=== PATIENT | male | born 1940 | race Caucasian/White ===

== ENCOUNTER 2017-10-25 20:45 | Emergency (ER) | payer MEDICARE, MEDICAID ==
--- NOTE | 2017-10-25 21:27 | ED Physician Chart ---
ED Chief Complaint/HPI - Patient Information Date Seen:: 10/25/17 Time Seen:: 21:15 Chief Complaint:: weakness History of Present Illness:: 4 days and 2 days ago patient had a seizure. Historian is the son but he did not witness either seizure. He has however witnessed the patient seizures in the past. During previous seizures patient's had generalized shaking with eyes rolling back. Since his last seizure 2 days ago he initially had right leg dragging when he walked and now is not walking at all. He has been talking normally since the last 2 seizures. Allergies:: Allergies Allergy/AdvReac Type Severity Reaction Status Date / Time No Known Allergies Allergy Verified 10/25/17 21:10 Vitals:: Vital Signs - 8 hr 10/25/17 20:49 Temp 98.1 F HR 68 RR 18 BP 130/60 O2 Sat % 97 Historian:: Family Member Review:: Nurse's Note Reviewed ED Review of Systems - Review of Systems General/Constitutional: No fever, No chills Skin: No skin lesions Head: No headache Eyes: No loss of vision ENT: No earache Neck: No neck pain, No swelling Cardio Vascular: No chest pain, No palpitations Pulmonary: No SOB GI: No nausea, No vomiting, No diarrhea G/U: No dysuria Musculoskeletal: No bone or joint pain Endocrine: No polyuria Psychiatric: No prior psych history, No anxiety Hematopoietic: No bruising Allergic/Immuno: No urticaria Neurological: Focal symptoms ED Past Medical History - Past Medical History Past Medical History: DM, Seizures, Other (seizures since age 43) Family History: Other Social History: Other (formerly smoked heavily and drank alcohol heavily but not currently) Surgical History: None Psychiatricy History: None Medication: Reviewed Family Medical History - Family Member Mother History Unknown: Yes ED Physical Exam - Physical Examination General/Constitutional: Awake, Well-developed, well-nourished, Alert Head: Atraumatic Eyes: Lids, conjuctiva normal, PERRL Skin: Nl inspection, No rash, No skin lesions, No ecchymosis ENMT: External ears, nose nl, TM canals nl, Nasal exam nl Other ENMT comments:: Edentulous with dentures Neck: No bruit Cardio Vascular: RRR GI: No tenderness/rebounding/guarding : No CVA tenderness Extremities: Normal digits & nails Other Neuro/Psych comments:: 1 out of 4 drooping right coronary mouth; slight decreased right hand grasp and right leg strength Misc: No paraspinal tenderness ED Labs/Radiology/EKG Results - Lab Results Results: Laboratory Results - last 24 hr 10/25/17 10/25/17 21:30 21:30 WBC 6.8 RBC 4.61 Hgb 14.9 Hct 44.0 MCV 95.3 MCH 32.3 H MCHC Differential 33.9 RDW 11.8 Plt Count 151 MPV 6.8 Neutrophils % 63.0 Lymphocytes % 25.7 Monocytes % 6.9 Eosinophils % 3.9 Basophils % 0.5 Sodium 133 L Potassium 3.9 Chloride 100 Carbon Dioxide 28.1 Anion Gap 8.8 BUN 17 Creatinine 0.9 Est GFR ( Amer) TNP Est GFR (Non-Af Amer) TNP BUN/Creatinine Ratio 18.9 Glucose 168 H Calcium 8.8 Magnesium 1.9 - Radiology Results Results: Chest x-ray negative. CT head showed large left subdural hematoma with 9 mm of midline shift - EKG Interpretations Rate & Rhythm: normal sinus rhythm the rate is 68 [place]: normal axis ED Assessment - Assessment General Assessment: Dr. Rivera calmly with the results of the CAT scan. I then called [facility]. They said they were closed to neurosurgery. [facility] was then contacted and I talked to Dr. Herman who accepted the patient. No tenderness, swelling or deformity of the patient's scalp was noted. Patient to be transferred by [facility] ambulance. ED Septic Shock - . Is Septic Shock (SBP<90, OR Lactate>4 mmol\L) present?: No - <6hrs of presentation: Vital Signs: Vital Signs - 8 hr 10/25/17 20:49 Temp 98.1 F HR 68 RR 18 BP 130/60 O2 Sat % 97 ED Reassessment (Disposition) - Reassessment Reassessment Condition:: Unchanged - Diagnosis Diagnosis:: Left subdural hematoma with right-sided weakness - Patient Disposition Discharge/Transfer:: Acute Care (other hosp) Condition at Disposition:: Stable, Unchanged
[2017-10-25 21:36] LABS: % BASOPHILS 0.5 % (0.0-2.0); % EOSINOPHILS 3.9 % (0.0-5.0); % LYMPHOCYTES 25.7 % (20.0-50.0); % MONOCYTES 6.9 % (2.0-10.0); EOSINOPHILE ABSOLUTE 0.3 Th/cmm (0.1-0.4); HEMOGLOBIN 14.9 gm/dL (12-16); LYMPHOCYTE ABSOLUTE 1.7 Th/cmm (1.5-3.0); MEAN CELL VOLUME 95.3 fl (80-99); MEAN CORPUSCULAR HEMOGLOBIN 32.3 pg (27.0-31.0); MEAN CORPUSCULAR HGB CONC 33.9 pg (28.0-36.0); MEAN PLATELET VOLUME 6.8 fl; MONOCYTE ABSOLUTE 0.5 Th/cmm (0.3-1.0); NEUTROPHILE ABSOLUTE 4.3 Th/cmm (1.8-8.0); PLATELET COUNT 151 Th/cmm (150-400); RED BLOOD COUNT 4.61 Mil/cmm (3.80-5.80); RED CELL DISTRIBUTION WIDTH 11.8 % (11.5-20.0); WHITE BLOOD COUNT 6.8 Th/cmm (4.8-10.8)
[2017-10-25 21:50] LABS: ANION GAP 8.8 (7.0-16.0); BUN - UREA NITROGEN 17 mg/dL (7-25); CALCIUM SERUM 8.8 mg/dL (8.6-10.3); CARBON DIOXIDE 28.1 mEq/L (21.0-31.0); CHLORIDE 100 mEq/L (98-107); CREATININE - SERUM 0.9 mg/dL (0.7-1.3); GLUCOSE 168 mg/dL (70-105); MAGNESIUM 1.9 mg/dL (1.9-2.7); POTASSIUM SERUM 3.9 mEq/L (3.5-5.1); SODIUM SERUM 133 mEq/L (136-145)
[2017-10-25 22:31] LABS: INR 0.9 (0.5-1.4); PROTHROMBIN TIME (TEST) 9.3 SECONDS (9.5-11.5)
--- NOTE | 2017-10-26 08:37 | Diagnostic Imaging Report ---
Portable chest x-ray Time: 8 hours History: Right-sided pain Allowing for portable technique the heart size is normal. No focal pulmonary parenchymal processes. No hilar or mediastinal abnormalities. There is evidence for right basilar atelectasis, early infiltrate cannot be excluded, if clinically indicated follow-up examination recommended. Impression: No acute abnormalities. Right base atelectasis is noted.
--- NOTE | 2017-10-26 08:48 | Diagnostic Imaging Report ---
Exam: CT examination of brain. Right-sided weakness Total DLP equals 703 CTDI equals 37.8 Findings: Multiple contiguous thin section of the brain were obtained from the base of skull to the vertex without administration material. The study demonstrates a large left extra-axial fluid collection extending from the left frontal lobe into the left parieto-occipital area measuring 2.4 cm in transverse diameter and 11.7 cm in AP diameter suggestive of a previous subarachnoid subdural hematoma with mass effect and midline shift to the right approximately 1 cm. The ventricular system is intact. There is no evidence of hydrocephalus. The right hemisphere is normal. The bony calvarium is intact. The paranasal sinuses demonstrate mucosal thickening of the ethmoid sinuses. IMPRESSION: Large left extra-axial fluid collection consistent with subacute left frontoparietal the occipital hematoma/hygroma mass effect midline shift the right approximately 1 cm. Clinical correlation recommended.
== END 2017-10-26 00:15 | disposition short-term general hospital (02) ==
LOC: ER 20:45
DX: I62.00 Nontraumatic subdural hemorrhage, unspecified (principal); M62.81 Muscle weakness (generalized); E11.9 Type 2 diabetes mellitus without complications; R56.9 Unspecified convulsions
CPT/HCPCS: 36415-UA; 70450-TC; 71045-TC; 80048-TC; 83735-TC; 85025-TC; 85610-TC; 85730-TC; 93005